=== PATIENT | female | born 1980 | race American Indian/Alaskan Native ===

== ENCOUNTER 2017-07-11 03:41 | Emergency (ER) | payer MEDICAID, OTHER ==
[2017-07-11 04:04] VITALS: BP 146/87
[2017-07-11] MEDS ORDERED: SUBLIMAZE IV ONE ×2 (04:10→05:00)
[2017-07-11] MEDS ORDERED: MORPHINE IV ONE (04:25)
[2017-07-11] MEDS ORDERED: NACL 0.9% 1000 ML 1,000 ML IV ONE (04:25)
[2017-07-11] MEDS ORDERED: ATIVAN IV ONE (04:25)
--- NOTE | 2017-07-11 04:41 | XRay Report ---
FINAL REPORT EXAM: XR SHOULDER 2+V LT HISTORY: L shoulder pain, h/o dislocation COMPARISONS: None. FINDINGS: AP and scapular Y views left shoulder Posterior left glenohumeral dislocation. Acromioclavicular and coracoclavicular intervals are within normal limits. No displaced fracture. Incomplete evaluation of the adjacent left lung is unremarkable. IMPRESSION: Posterior left glenohumeral dislocation.
[2017-07-11] MEDS ORDERED: DIPRIVAN 10 MG/ML IV ONE (05:22)
--- NOTE | 2017-07-11 05:36 | Emergency Department Report ---
HPI - General Chief Complaint: Extremity Problem,Nontraumatic Time Seen by Provider: 07/11/17 05:22 - HPI HPI: The patient is a 37 yo female presents for evaluation of left shoulder pain. She states that she injured her right shoulder approximately 1 hour prior to arrival, and that she experienced constant pain since, 03/10 in severity, throbbing in quality, exacerbated with attempting to movement of the right shoulder. She denies, injury elsewhere, headache, neck pain, chest pain, dyspnea, back pain, abdominal pain, paresthesias or motor deficit ED Past Medical Hx - Past Medical History Previous Medical History?: Yes Additional medical history: h/o shoulder dislocation - Surgical History Past Surgical History?: Yes Additional Surgical History: "screws R leg/R arm" - Social History Smoking Status: Never Smoker Substance Use Type: None - Medications Home Medications: Home Medications Medication Instructions Recorded Confirmed Last Taken Type Ibuprofen [Motrin] 800 mg PO Q8HR PRN #15 tablet 07/11/17 Unknown Rx traMADol [Ultram 50 MG tab] 50 mg PO Q6HR PRN #15 tablet 07/11/17 Unknown Rx ED Review of Systems ROS: Stated complaint: LT SHOULDER DISLOCATION Other details as noted in HPI Constitutional: denies: fever ENT: denies: throat or neck pain Respiratory: denies: cough, shortness of breath Cardiovascular: denies: chest pain Endocrine: denies unexplained weight loss or gain Gastrointestinal: denies: abdominal pain, nausea Genitourinary: denies: dysuria Musculoskeletal: reports right shoulder pain denies: leg swelling Skin: denies: rash Neurological: denies: headache Hematological/Lymphatic: denies: easy bleeding or easy bruising Psych: denies sadness or hopelessness Physical Exam - Physical Exam Vital Signs: Vital Signs 07/11/17 03:58 Temperature 98.7 F Pulse Rate 78 Respiratory 18 Rate Blood Pressure 146/87 O2 Sat by Pulse 100 Oximetry Physical Exam: General: well-nourished, well-developed, no acute distress Head: Normocephalic, atraumatic Eyes: normal sclera ENT: Mucous membranes are pink and moist Neck: trachea midline, neck supple, No neck stiffness, no cervical adenopathy Respiratory: Breath sounds equal bilaterally, no wheezing, rales, or rhonchi Cardio: S1 and S2 present, no murmurs, rubs, gallops, capillary refill is brisk Abdomen: Normoactive bowel sounds, soft abdomen, no tenderness Musc: left shoulder deforimty present, tenderness to palption present, sensation , motor function, and pulses are intact in the right arm distal to the shoulder Skin: No rash Neuro: no facial drooping, normal speech Psych: Normal affect ED Course Vital Signs 07/11/17 03:58 Temperature 98.7 F Pulse Rate 78 Respiratory 18 Rate Blood Pressure 146/87 O2 Sat by Pulse 100 Oximetry - Moderate Sedation Indications: fracture/dislocation redu ASA Class: I Mallampati Airway Score: 1 Time of Last PO Intake: 01:00 Preparation: cardiac cath rn applied, pulse oximeter, capnometry used, suction/ airway equipment at bedside, IV secured IV Propofol Dose (mgs): 60 Reversal Agents Used: Naloxone Complications: none Patient Tolerated Procedure: well, no complications - Orthopedic Joint Reduction Joint #1 Consent Obtained: verbal consent, written consent Time Out Performed: Yes ([id number]) Side: left Joint Reduction Location: shoulder Analgesia: moderate sedation Shoulder Technique Used (if applicable): traction/counter-traction Post-Reduction Neuro Exam: intact Post-Reduction Vascular Exam: intact Post Reduction X-Ray Obtained: Yes Post Reduction X-Ray Results: reduced Splint Applied: No (shoulder immobilizer applied) Patient Tolerated Procedure: well, no complications ED Medical Decision Making - Medical Decision Making The patient was seen and examined by myself. The patient is placed on a cardiac cath rn and continuous pulse ox. On initial evaluation, the patient was found to be in no distress. Evaluation orders were placed. The patient is given IV pain medicine. X-ray of the right shoulder reveals a posterior shoulder dislocation. Conscious sedation and reduction of the right shoulder was performed. The patient is placed in a shoulder immobilizer. Repeat x-ray reveals appropriate alignment of the right shoulder. The patient was reevaluated and reported that their symptoms were markedly improved. The patient is stable for discharge with outpatient follow-up. The patient is given follow-up and return instructions. The patient expressed understanding and agreed with the plan. The patient is discharged in stable condition. Critical care attestation.: If time is entered above; I have spent that time in minutes in the direct care of this critically ill patient, excluding procedure time. ED Disposition Clinical Impression: Acute pain of left shoulder Posterior dislocation of right shoulder joint Qualifiers: Encounter type: initial encounter Qualified Code(s): S43.021A - Posterior subluxation of right humerus, initial encounter Disposition: - TO HOME OR SELFCARE Is pt being admited?: No Does the pt Need Aspirin: No Condition: Stable Instructions: Shoulder Dislocation (ED) Referrals: EDA ANDINO MD [Staff Physician] - 3-5 Days Time of Disposition: 05:31
--- NOTE | 2017-07-13 07:39 | XRay Report ---
FINAL REPORT EXAM: XR SHOULDER 1V LT HISTORY: dislocation COMPARISONS: 07/11/2017 FINDINGS: Single AP scapular Y-view of the left shoulder Obliquity on this radiograph shows the scapula in AP view rather than lateral/Y-view. The humeral head is internally rotated. No displaced fracture identified. Acromioclavicular and coracoclavicular intervals are within normal limits. Incomplete evaluation of the adjacent left lung is unremarkable. IMPRESSION: No displaced fracture. Glenohumeral alignment is incompletely evaluated on this exam secondary to obliquity. Consider axillary view or repeat scapular Y-view for further evaluation.
== END 2017-07-11 07:24 | disposition home or self-care (01) ==
LOC: ED 03:41
DX: S43.021A Posterior subluxation of right humerus, initial encounter (principal); X58.XXXA Exposure to other specified factors, initial encounter; Y93.89 Activity, other specified; Y92.89 Other specified places as the place of occurrence of the external cause; Y99.8 Other external cause status
CPT/HCPCS: 23650; 73020; 73030; 96361; 96374; 99284; J2060; J2704; J3010; J7030

== ENCOUNTER 2018-11-22 13:14 | Emergency (ER) | payer MEDICAID ==
[2018-11-22 13:59] VITALS: BP 136/90
--- NOTE | 2018-11-22 14:00 | Event Note ---
ED Screening Note Date of service: 11/22/18 Time: 13:57 ED Screening Note: 38 y/o female comes in for feeling like something is in her stomach. Admits to lower back pain. Reports that she has had her tubs clamped. No nausea or vomiting. This initial assessment/diagnostic orders/clinical plan/treatment(s) is/are subject to change based on patients health status, clinical progression and re- assessment by fellow clinical providers in the ED. Further treatment and workup at subsequent clinical providers discretion. Patient/guardian urged not to elope from the ED as their condition may be serious if not clinically assessed and managed. Initial orders include:
[2018-11-22 14:53] LABS: Bilirubin,Urine NEG (Negative); Blood,Urine NEG (Negative); Color,Urine Yellow (Yellow); Mucus,Urine FEW /HPF; Protein,Urine <15 mg/dL mg/dL (Negative); Urobilinogen,Urine < 2.0 mg/dL (<2.0); WBC,Urine < 1.0 /HPF (0.0-6.0)
[2018-11-22] MEDS ORDERED: ALUM-MAG HYDROX-SIMETH 200-200-20MG/5ML PO ONE (16:04)
[2018-11-22] MEDS ORDERED: PEPCID PO ONE (16:04)
--- NOTE | 2018-11-22 16:04 | Emergency Department Report ---
ED Dysuria HPI - HPI Chief Complaint: Abdominal Pain Stated Complaint: STOMACH PAIN Time Seen by Provider: 11/22/18 16:03 Duration: 3 Days Location of Discomfort: Urethra (dysuria) Severity: Mild Symptoms: Dysuria: Yes, Frequency: No, Flank Pain: No, Fever: No, Hematuria: No, Abdominal Pain: No, Previous UTI's: No Other History: pt comes in with nausea. concerned she is due to symptoms. no vomiting noted. VSS. afebrile. no vag bleed or discharge. ED Review of Systems ROS: Stated complaint: STOMACH PAIN Other details as noted in HPI Comment: All other systems reviewed and negative ED Past Medical Hx - Past Medical History Previous Medical History?: Yes Additional medical history: h/o shoulder dislocation - Surgical History Past Surgical History?: Yes Additional Surgical History: "screws R leg/R arm",tubiligation - Family History Family history: no significant - Social History Smoking Status: Current Every Day Smoker Substance Use Type: Alcohol, Marijuana - Medications Home Medications: Home Medications Medication Instructions Recorded Confirmed Last Taken Type Ibuprofen [Motrin] 800 mg PO Q8HR PRN #15 tablet 07/11/17 Unknown Rx traMADol [Ultram 50 MG tab] 50 mg PO Q6HR PRN #15 tablet 07/11/17 Unknown Rx Dysuria Exam - Exam General: Vital signs noted. No distress. Alert and acting appropriately. Exam: Yes Moist Mucous Membranes, No CVA Tenderness, No Abdominal Tenderness, No Rigidity or Guarding Labs: Lab Results 11/22/18 11/22/18 Range/Units 14:11 14:17 HCG, Quant < 2 (0-4) mIU/mL Urine Color Yellow (Yellow) Urine Turbidity Cloudy (Clear) Urine pH 7.0 (5.0-7.0) Ur Specific [place] 1.018 (1.003-1.030) Urine Protein <15 mg/dl (Negative) mg/dL Urine Glucose (UA) Neg (Negative) mg/dL Urine Ketones Neg (Negative) mg/dL Urine Blood Neg (Negative) Urine Nitrite Neg (Negative) Urine Bilirubin Neg (Negative) Urine Urobilinogen < 2.0 (<2.0) mg/dL Ur Leukocyte Esterase Neg (Negative) Urine WBC (Auto) < 1.0 (0.0-6.0) /HPF Urine RBC (Auto) 4.0 (0.0-6.0) /HPF U Epithel Cells (Auto) 7.0 (0-13.0) /HPF Urine Mucus Few /HPF ED Course Vital Signs 11/22/18 13:55 Temperature 98.3 F Pulse Rate 105 H Respiratory 18 Rate Blood Pressure 136/90 O2 Sat by Pulse 100 Oximetry ED Medical Decision Making - Medical Decision Making Vital Signs 11/22/18 13:55 Temperature 98.3 F Pulse Rate 105 H Respiratory 18 Rate Blood Pressure 136/90 O2 Sat by Pulse 100 Oximetry Lab Results 11/22/18 11/22/18 Range/Units 14:11 14:17 HCG, Quant < 2 (0-4) mIU/mL Urine Color Yellow (Yellow) Urine Turbidity Cloudy (Clear) Urine pH 7.0 (5.0-7.0) Ur Specific [place] 1.018 (1.003-1.030) Urine Protein <15 mg/dl (Negative) mg/dL Urine Glucose (UA) Neg (Negative) mg/dL Urine Ketones Neg (Negative) mg/dL Urine Blood Neg (Negative) Urine Nitrite Neg (Negative) Urine Bilirubin Neg (Negative) Urine Urobilinogen < 2.0 (<2.0) mg/dL Ur Leukocyte Esterase Neg (Negative) Urine WBC (Auto) < 1.0 (0.0-6.0) /HPF Urine RBC (Auto) 4.0 (0.0-6.0) /HPF U Epithel Cells (Auto) 7.0 (0-13.0) /HPF Urine Mucus Few /HPF dc home with dc plan of care. pain free on dc. relieved preg is neg. Critical care attestation.: If time is entered above; I have spent that time in minutes in the direct care of this critically ill patient, excluding procedure time. ED Disposition Clinical Impression: Dyspepsia, Negative test Disposition: DC-01 TO HOME OR SELFCARE Is pt being admited?: No Does the pt Need Aspirin: No Condition: Stable Instructions: Abdominal Pain (ED) Additional Instructions: DIET TOLERATED MEDS ORDERED TODAY IN ER FOLLOW INSTRUCTIONS ON THE BOTTLE FOLLOW UP PCP WITHIN 48 HOURS TO ENSURE YOU ARE GETTING BETTER ACTIVITY TOLERATED MOTRIN OR TYLENOL FOR PAIN OR FEVER RETURN TO THE ER FOR WORSENING SYMPTOMS NOT RELIEVED BY YOUR MEDICATIONS. NEG TEST Referrals: RONEL EUGENE MD [Primary Care Provider] - 3-5 Days Time of Disposition: 16:08
== END 2018-11-22 16:25 | disposition home or self-care (01) ==
LOC: ED 13:14
DX: R10.13 Epigastric pain (principal); F17.200 Nicotine dependence, unspecified, uncomplicated; F12.90 Cannabis use, unspecified, uncomplicated; Z98.51 Tubal ligation status; Z79.899 Other long term (current) drug therapy; Z88.1 Allergy status to other antibiotic agents; Z88.8 Allergy status to other drugs, medicaments and biological substances
CPT/HCPCS: 36415; 81001; 84702; 99283